=== PATIENT | male | born 1955 | race Caucasian/White ===

== ENCOUNTER 2024-11-22 11:27 | Emergency (ER) | payer OTHER ==
[~2024-11-22] VITALS: Ht 177.8 cm; Wt 99.3 kg
[2024-11-22 11:33] VITALS: BP 123/62; PULSE 66; RESP 18; TEMP 97.3; O2SAT 98
--- NOTE | 2024-11-22 13:54 | Physician Documentation ---
History of Present Illness ~ Chief Complaint: Shoulder pain Stated Complaint: SHOULDER PAIN Time Seen by MD: 13:27 HPI Patient is seen today with complaints of pain in his left shoulder for three weeks. Patient states he had x-ray of the left shoulder last week by urgent ca re that showed no fracture. Patient states he has not had any traumatic event or injury to the left shoulder but has started working out again in might have developed an overuse injury. Patient denies any numbness or tingling and has no other concern or complaint at this time. He is requesting a muscle relaxer. States he is just taking Tylenol for the pain. Review of Systems Constitutional: Denies: chills, fever, weakness Eyes: Denies: pain, blurred vision ENT: Denies: ear pain, nose pain, throat pain, mouth pain Respiratory: Denies: cough, shortness of breath Cardiovascular: Denies: chest pain, palpitations Gastrointestinal: Denies: abdominal pain, nausea, vomiting Genitourinary: Denies: burning, dysuria Male Genitalia: Denies: penile discharge, testicular pain Neurological: Denies: headache, dizziness Musculoskeletal: Denies: pain, swelling Integumentary: Denies: rash, lesions Allergic/Immunologic: Denies: hives, itching Hematologic/Lymphatic: Denies: no symptoms reported Psychiatric: Denies: depression, anxiety Physical Exam Vital Signs: Temperature: 97.3, Source: Temporal, Heart Rate: 66, Respiratory Rate: 18, BP: 123/62, Pulse Oximetry: 98, Weight: 99.300 Oxygen Flow Rate: 0 Physical Exam General: Awake and Alert, no acute distress. HEENT: Conjunctiva pink, Sclera clear, Mucus Membranes moist. Neck: Supple without masses and tenderness. Resp: Unlabored. Lungs clear to auscultation bilaterally. Heart: Regular Rate and rhythm, normal S1 and S2 without murmur, rub or gallop. Musculoskeletal: Patient on exam does have decreased range of motion of the left shoulder in abduction, positive empty can test, pain elicited with resisted internal and external rotation. Patient is neurovascularly intact distally, motor function is intact distally. Extremities: No cyanosis,clubbing or edema. Skin: Warm and Dry. Progress Results/Orders Results/Orders Vital Signs 11/22/24 11:33 Temp 97.3 Pulse 66 Resp 18 B/P (MAP) 123/62 Pulse Ox 98 O2 Flow Rate 0 Medical Decision Making Additional information obtaine: PCP Findings Patient is seen today with complaints of pain in his left shoulder for three wee ks. Patient states he had x-ray of the left shoulder last week by urgent care that showed no fracture. Patient states he has not had any traumatic event or injury to the left shoulder but has started working out again in might have developed an overuse injury. Patient denies any numbness or tingling and has no other concern or complaint at this time. He is requesting a muscle relaxer. States he is just taking Tylenol for the pain. Patient declined x-rays today. He had them taking just last week. Patient was given prescription of meloxicam 15 mg one tab once a day to be taken with food. Along with muscle relaxer to be taken as needed. Patient will follow up with primary care in 3-5 days if no better for referral to physical therapy or child care specialist or MRI as needed. Return to ED with any worsening, concerning or changing symptoms. Differential Dx:Considerations: Include: AC separation, arthritis, Contusion, Dislocation, Fracture: Humerus, Hematoma Departure Disposition: HOME / SELF CARE / HOMELESS Impression: Primary Impression: Shoulder pain Qualified Codes: M25.512 - Pain in left shoulder Additional Impression: Strain of shoulder Qualified Codes: S46.912A - Strain of unspecified muscle, fascia and tendon at shoulder and upper arm level, left arm, initial encounter Condition: Stable Discharge Instructions: Shoulder Pain Additional Instructions: Patient was given prescription of meloxicam 15 mg one tab once a day to be taken with food. Along with muscle relaxer to be taken as needed. Patient will fol low up with primary care in 3-5 days if no better for referral to physical therapy or child care specialist or MRI as needed. Return to ED with any worsening, concerning or changing symptoms. Referrals: NO PRIMARY CARE PROVIDER (PCP) Prescriptions Methocarbamol (Methocarbamol) 750 Mg Tablet 1 TAB PO Q8H for 15 Days, #45 TAB 0 Refills Prov: TALHA INFANTE 11/22/24 Meloxicam (Meloxicam) 15 Mg Tablet 1 TAB PO DAILY for 30 Days, #15 TAB 0 Refills Prov: TALHA INFANTE 11/22/24 Signature Scribe Signature: No scribe Attestation: No scribe TALHA INFANTE Nov 22, 2024 13:54
[2024-11-22] MEDS ORDERED: MELO-102 PO (14:00)
[2024-11-22] MEDS ORDERED: METH-798 PO (14:00)
== END 2024-11-22 14:08 | disposition home or self-care (01) ==
LOC: ER 11:28
DX: S46.912A Strain of unspecified muscle, fascia and tendon at shoulder and upper arm level, left arm, initial encounter (principal); X58.XXXA Exposure to other specified factors, initial encounter; Y93.89 Activity, other specified; Y92.89 Other specified places as the place of occurrence of the external cause; Y99.8 Other external cause status
CPT/HCPCS: 99283